=== PATIENT | female | born 1960 | race Caucasian/White ===

== ENCOUNTER 2016-12-27 08:41 | Emergency (ER) | payer BC ==
[2016-12-27 08:48] VITALS: BP 127/73
[2016-12-27] MEDS ORDERED: Amoxicillin/Clavulanate TAB* 875 MG PO ONE ×2 (09:00→09:30)
--- NOTE | 2016-12-27 09:04 | UC ---
Throat Pain/Nasal Derrick HPI - History of Current Complaint Chief Complaint: UCRespiratory Stated Complaint: SINUS CONGESTION Time Seen by Provider: 12/27/16 08:46 Hx Last Menstrual Period: age 34 yo - Allergies/Home Medications Allergies/Adverse Reactions: Allergies Allergy/AdvReac Type Severity Reaction Status Date / Time Morphine AdvReac Severe Vomiting Verified 12/27/16 08:44 environmental Allergy Eyes, Uncoded 12/27/16 08:44 runny nose PMH/Surg Hx/FS Hx/Imm Hx Endocrine History Of: Reports: Thyroid Disease - hyper Denies: Diabetes Cardiovascular History Of: Denies: Cardiac Disorders, Hypertension Respiratory History Of: Reports: Asthma, Bronchitis Denies: COPD GI/ History Of: Denies: Ulcer Cancer History Of: Denies: Breast Cancer - Surgical History Surgical History: Yes Surgery Procedure, Year, and Place: Hysterectomy age 34. gastric sleeve - Family History Known Family History: Positive: None, Cardiac Disease - mi in mid 30's, Renal Disease, Other - familial hypercholesterolemia - Social History Occupation: Employed Full-time Lives: With Family Alcohol Use: Weekly Alcohol Amount: 4 Substance Use Type: None Smoking Status (MU): Former Smoker Type: Cigarettes Amount Used/How Often: 1/2 PACK A DAY Length of Time of Smoking/Using Tobacco: 10 YEARS Have You Smoked in the Last Year: No - STARTED AGE 18 QUIT AGE 28 When Did the Patient Quit Smoking/Using Tobacco: 28 YRS AGO - Immunization History Most Recent Influenza Vaccination: 2016 Most Recent Tetanus Shot: UP TO DATE Most Recent Pneumonia Vaccination: HAS HAD Review of Systems Constitutional: Negative Skin: Negative Eyes: Negative ENT: Epistaxis, Sore Throat, Nasal Discharge, Other - sinus congestion/pain Respiratory: Cough Cardiovascular: Negative Neurological: Headache - sinus All Other Systems Reviewed And Are Negative: Yes Physical Exam Triage Information Reviewed: Yes Appearance: Well-Appearing, No Pain Distress, Well-Nourished Vital Signs: Initial Vital Signs Temp 97.2 F 12/27/16 08:45 Pulse 68 12/27/16 08:45 Resp 18 12/27/16 08:45 BP 127/73 12/27/16 08:45 Pulse Ox 100 12/27/16 08:45 Vital Signs Reviewed: Yes Eyes: Positive: Conjunctiva Clear. Negative: Discharge ENT: Positive: Hearing grossly normal, Pharyngeal erythema - mild, Nasal congestion, Nasal drainage, TMs normal. Negative: Tonsillar swelling, Tonsillar exudate, Muffled/hoarse voice Dental Exam: Normal Neck: Positive: Supple, Nontender Respiratory: Positive: Lungs clear, Normal breath sounds, No respiratory distress, No accessory muscle use Cardiovascular: Positive: RRR, No Murmur Musculoskeletal Exam: Normal Neurological: Positive: Alert, Muscle Tone Normal Psychological: Positive: Age Appropriate Behavior Skin Exam: Normal Throat Pain/Nasal Course/Dx - Differential Dx/Diagnosis Differential Diagnosis/HQI/PQRI: Pharyngitis, Sinusitis, Tonsillitis, URI Provider Diagnoses: sinusitis Discharge - Discharge Plan Condition: Stable Disposition: HOME Prescriptions: Amoxicillin/Clavulanate TAB* [Augmentin TAB 875*] 875 mg PO BID #19 tab Patient Education Materials: Sinusitis (ED) Referrals: Marcia Moon [Primary Care Provider] - If Needed Additional Instructions: TRY USING THE NETTI POT IN THE MORNINGS DISCUSSED. YOU MUST ALWAYS USE CLEAN WATER. REMEMBER, POSTURE IS AN IMPORTANT FACTOR IN SINUS DRAINAGE. MOVE YOUR NECK, BREATHE. AUGMENTIN: Augmentin is a mixture of amoxicillin and clavulanate. Amoxicillin is a member of the penicillin family. It covers the germs likely to cause ear, bronchial, and urinary infections better than plain penicillin. The addition of clavulanate allows it to cover staph infections of the skin, as well as resistant cases of ear and sinus infections. Your physician has chosen Augmentin for you because of the special nature of your situation. Augmentin is best taken with meals. Nausea after taking the medication is rare, but can occur. Diarrhea can occur, particularly in small children. Vaginal yeast infections, and oral thrush in infants are also common. Contact your physician if these problems occur. Allergy to penicillins is common. If you have had an allergic reaction to any drug of the penicillin family, you should never take any other penicillin. Notify your doctor at once if you develop hives, shortness of breath, swelling, or faintness. ANY TIME YOU TAKE AN ANTIBIOTIC, IT IS IMPORTANT TO REPLENISH THE BODY'S BALANCE OF "GOOD" BACTERIA BY EATING HIGH QUALITY CULTURED FOOD SUCH YOGURT, SAURKRAUT OR ALONDRA CHI AND/OR TAKING A PROBIOTIC SUPPLEMENT.
== END 2016-12-27 09:08 | disposition home or self-care (01) ==
LOC: UCCORT 08:41
DX: J32.9 Chronic sinusitis, unspecified (principal); J45.909 Unspecified asthma, uncomplicated; E05.90 Thyrotoxicosis, unspecified without thyrotoxic crisis or storm; Z90.710 Acquired absence of both cervix and uterus; Z98.84 Bariatric surgery status; Z88.5 Allergy status to narcotic agent; Z87.891 Personal history of nicotine dependence
CPT/HCPCS: 99212; A9270-GY; G0463

== ENCOUNTER 2017-06-19 15:08 | Emergency (ER) | payer BC ==
[2017-06-19 16:25] VITALS: BP 109/62
[2017-06-19] MEDS ORDERED: Lidocaine 1% MPF* 2 ML VIAL INJ ONE (16:37)
--- NOTE | 2017-06-19 16:41 | UC ---
Laceration HPI - HPI Summary HPI Summary: Cut left thumb cutting up squash for a barefoot rené recipe - History Of Current Complaint Chief Complaint: UCLaceration Stated Complaint: LEFT THUMB LAC Time Seen by Provider: 06/19/17 16:23 Hx Obtained From: Patient Hx Last Menstrual Period: N/A Laceration Location: Finger - left thumb Mechanism Of Injury: Sharp Trauma Onset/Duration: Sudden Onset Severity: Mild Aggravating Factors: Movement Hands: 1 - laceration Related History: Dominant Hand Right - Allergies/Home Medications Allergies/Adverse Reactions: Allergies Allergy/AdvReac Type Severity Reaction Status Date / Time Morphine AdvReac Severe Vomiting Verified 06/19/17 16:25 environmental Allergy Eyes, Uncoded 06/19/17 16:25 runny nose PMH/Surg Hx/FS Hx/Imm Hx Previously Healthy: Yes - Surgical History Surgical History: Yes Surgery Procedure, Year, and Place: Hysterectomy age 34. gastric sleeve - Family History Known Family History: Positive: None, Cardiac Disease - mi in mid 30's, Renal Disease, Other - familial hypercholesterolemia - Social History Occupation: Employed Full-time Lives: With Family Alcohol Use: Weekly Alcohol Amount: 4 Substance Use Type: None Smoking Status (MU): Former Smoker Type: Cigarettes Amount Used/How Often: 1/2 PACK A DAY Length of Time of Smoking/Using Tobacco: 10 YEARS Have You Smoked in the Last Year: No - STARTED AGE 18 QUIT AGE 28 When Did the Patient Quit Smoking/Using Tobacco: 28 YRS OLD - Immunization History Most Recent Influenza Vaccination: 2016 Most Recent Tetanus Shot: UP TO DATE Most Recent Pneumonia Vaccination: HAS HAD Review of Systems Skin: Bruising - under the cut Is Patient Immunocompromised?: No All Other Systems Reviewed And Are Negative: Yes Physical Exam Triage Information Reviewed: Yes Appearance: Well-Appearing, No Pain Distress, Well-Nourished Vital Signs: Initial Vital Signs Temp 97.8 F 06/19/17 16:18 Pulse 77 06/19/17 16:18 Resp 20 06/19/17 16:18 BP 109/62 06/19/17 16:18 Vital Signs Reviewed: Yes Eyes: Positive: Conjunctiva Clear Respiratory Exam: Normal Cardiovascular Exam: Normal Musculoskeletal Exam: Normal Neurological Exam: Normal Psychological Exam: Normal Skin: Positive: Other - left thumb laceration Laceration Repair - Laceration Repair 1 Description: Linear Laceration Size After Repair: Length (cm) - 1.8 cm Modified For Repair: No Type Injection: Local Anesthesia Used: 1.0% Lido Cleansing Completed Via Routine Prep: Yes Irrigation With Pressure Irrigation Device: Yes Closure Material: Sutures Closure Method: Single Layer Suture Of: Skin - #7 sutures Suture Type: Nylon - 4-0 Laceration Course/Dx - Differential Dx - Laceration/Wound Differental Diagnoses: Abrasion, Abscess, Avulsion, Laceration Provider Diagnoses: 1.8 cm laceration left thumb Discharge - Discharge Plan Condition: Stable Disposition: HOME Patient Education Materials: Laceration (ED), Care For Your Stitches (ED) Additional Instructions: F/U 10 days for suture removal.
== END 2017-06-19 17:11 | disposition home or self-care (01) ==
LOC: UCCORT 15:08
DX: S61.012A Laceration without foreign body of left thumb without damage to nail, initial encounter (principal); W25.XXXA Contact with sharp glass, initial encounter; Z87.891 Personal history of nicotine dependence; Z88.5 Allergy status to narcotic agent
CPT/HCPCS: 12001; 99211; G0463

== ENCOUNTER 2017-11-24 12:59 | Emergency (ER) | payer BC ==
[2017-11-24 13:16] VITALS: BP 124/72
--- NOTE | 2017-11-24 13:28 | UC ---
Respiratory Complaint HPI - HPI Summary HPI Summary: fever/ chills since this morning sever body aches, fatigue, + cough, sore throat no n/v/d/c , no abdominal pain, no urinary sx - History of Current Complaint Chief Complaint: UCGeneralIllness Stated Complaint: CHILLS,FEVER,BODY ACHES Time Seen by Provider: 11/24/17 13:14 Hx Obtained From: Patient Hx Last Menstrual Period: N/A Onset/Duration: Gradual Onset, Lasting Days - 1, Still Present Timing: Constant Severity Initially: Severe Severity Currently: Moderate Pain Intensity: 0 Character: Cough: Nonproductive Aggravating Factors: Allergens, Deep Breaths Alleviating Factors: Nothing Associated Signs And Symptoms: Positive: Fever, Chills, Wheezing, URI, Nasal Congestion. Negative: Hemoptysis, Dizziness, Calf Pain, Calf Swelling - Allergies/Home Medications Allergies/Adverse Reactions: Allergies Allergy/AdvReac Type Severity Reaction Status Date / Time morphine Allergy Vomiting Verified 11/24/17 13:17 environmental Allergy Eyes, Uncoded 11/24/17 13:17 runny nose PMH/Surg Hx/FS Hx/Imm Hx Endocrine History: Thyroid Disease - Surgical History Surgical History: Yes Surgery Procedure, Year, and Place: Hysterectomy age 34. gastric sleeve - Family History Known Family History: Positive: None, Cardiac Disease - mi in mid 30's, Renal Disease, Other - familial hypercholesterolemia - Social History Alcohol Use: Weekly Alcohol Amount: 4 Substance Use Type: None Smoking Status (MU): Former Smoker Type: Cigarettes Amount Used/How Often: 1/2 PACK A DAY Length of Time of Smoking/Using Tobacco: 10 YEARS Have You Smoked in the Last Year: No - STARTED AGE 18 QUIT AGE 28 When Did the Patient Quit Smoking/Using Tobacco: 28 YRS OLD - Immunization History Most Recent Influenza Vaccination: 2016 Most Recent Tetanus Shot: UP TO DATE Most Recent Pneumonia Vaccination: HAS HAD Review of Systems Constitutional: Fever, Chills, Fatigue Skin: Negative Eyes: Negative ENT: Sore Throat Respiratory: Cough Cardiovascular: Negative Gastrointestinal: Negative Genitourinary: Negative Musculoskeletal: Arthralgia, Myalgia Is Patient Immunocompromised?: No All Other Systems Reviewed And Are Negative: Yes Physical Exam Triage Information Reviewed: Yes Appearance: Well-Appearing, Well-Nourished Vital Signs: Initial Vital Signs Temp 97.1 F 11/24/17 13:11 Pulse 75 11/24/17 13:11 Resp 14 11/24/17 13:11 BP 124/72 11/24/17 13:11 Pulse Ox 100 11/24/17 13:11 Vital Signs Reviewed: Yes Eyes: Positive: Conjunctiva Clear ENT: Positive: Normal ENT inspection, Hearing grossly normal, Pharynx normal Neck: Positive: Supple, Nontender, No Lymphadenopathy Respiratory: Positive: Chest non-tender, Lungs clear, Normal breath sounds Cardiovascular: Positive: RRR, No Murmur, Pulses Normal Abdominal Exam: Normal Abdomen Description: Positive: Nontender, Soft. Negative: Distended, Guarding Bowel Sounds: Positive: Present Skin Exam: Normal UC Diagnostic Evaluation - Laboratory O2 Sat by Pulse Oximetry: 100 Respiratory Course/Dx - Differential Dx/Diagnosis Provider Diagnoses: viral illness Discharge - Discharge Plan Condition: Stable Disposition: HOME Patient Education Materials: Viral Syndrome (ED) Referrals: Marcia Moon [Primary Care Provider] - If Needed
== END 2017-11-24 13:47 | disposition home or self-care (01) ==
LOC: UCCORT 12:59
DX: B34.9 Viral infection, unspecified (principal)
CPT/HCPCS: 87502; 99211; G0463

== ENCOUNTER 2018-02-07 15:34 | Emergency (ER) | payer BC ==
[2018-02-07 15:58] VITALS: BP 120/77
--- NOTE | 2018-02-07 16:29 | UC ---
General HPI - HPI Summary HPI Summary: pt c/o malaise since end of last week. past 1-2 days noted some irritation over upper R breast and now has a rash that is still evolving. also notes a single pink spot on her R abdomen. + hx chicken pox. no shingles vaccination. pt also notes a sore inside her L nare. no hx mrsa. - History of Current Complaint Chief Complaint: UCRash Stated Complaint: RASH Time Seen by Provider: 02/07/18 16:12 Hx Obtained From: Patient Hx Last Menstrual Period: N/A Onset/Duration: Gradual Onset Timing: Constant Pain Intensity: 0 Aggravating: nothing Alleviating: nothing Associated Signs & Symptoms: Positive: Headache, Weakness - Allergy/Home Medications Allergies/Adverse Reactions: Allergies Allergy/AdvReac Type Severity Reaction Status Date / Time morphine Allergy Vomiting Verified 11/24/17 13:17 environmental Allergy Eyes, Uncoded 11/24/17 13:17 runny nose PMH/Surg Hx/FS Hx/Imm Hx Endocrine History: Dyslipidemia Respiratory History: Asthma - Surgical History Surgical History: Yes Surgery Procedure, Year, and Place: Hysterectomy age 34. gastric sleeve - Family History Known Family History: Positive: None, Cardiac Disease - mi in mid 30's, Renal Disease, Other - familial hypercholesterolemia - Social History Occupation: Employed Full-time Lives: With Family Alcohol Use: Daily Alcohol Amount: glass of wine Substance Use Type: None Smoking Status (MU): Former Smoker Type: Cigarettes Amount Used/How Often: 1/2 PACK A DAY Length of Time of Smoking/Using Tobacco: 10 YEARS Have You Smoked in the Last Year: No - STARTED AGE 18 QUIT AGE 28 When Did the Patient Quit Smoking/Using Tobacco: 28 YRS OLD - Immunization History Most Recent Influenza Vaccination: 2016 Most Recent Tetanus Shot: UP TO DATE Most Recent Pneumonia Vaccination: HAS HAD Vaccination Up to Date: Yes Review of Systems Constitutional: Fatigue Skin: Rash Eyes: Negative ENT: Negative Respiratory: Negative Cardiovascular: Negative Gastrointestinal: Negative Genitourinary: Negative Motor: Negative Neurovascular: Negative Musculoskeletal: Myalgia Neurological: Weakness Psychological: Negative Is Patient Immunocompromised?: No All Other Systems Reviewed And Are Negative: Yes Physical Exam Triage Information Reviewed: Yes Appearance: Well-Appearing Vital Signs: Initial Vital Signs Temp 97.8 F 02/07/18 15:54 Pulse 68 02/07/18 15:54 Resp 17 02/07/18 15:54 BP 120/77 02/07/18 15:54 Pulse Ox 100 02/07/18 15:54 Vital Signs Reviewed: Yes Eyes: Positive: Conjunctiva Clear ENT: Positive: Pharynx normal, TMs normal, Other - small sore inside L nare that is tender. Negative: Nasal congestion, Nasal drainage Neck: Positive: Supple, Nontender, No Lymphadenopathy Respiratory: Positive: Lungs clear, Normal breath sounds Cardiovascular: Positive: RRR, No Murmur Abdomen Description: Positive: Nontender, No Organomegaly, Soft Bowel Sounds: Positive: Present Musculoskeletal: Positive: ROM Intact Neurological: Positive: Alert Psychological: Positive: Age Appropriate Behavior Skin Exam: Normal Skin: Positive: rashes - 3 pink circular clusters across R upper breast with excoriation. isolated pink dot R abdomen. No axillary adenopathy. Course/Dx - Course Course Of Treatment: isolated sore in L nare, will tx bactroban ointment. rash was preceeded by general malaise and irritation to that area followed by the rash. + hx varicella. does not look c/w insect bites thus most c/w shingles. will tx with famvir. - Differential Dx - Multi-Symptom Provider Diagnoses: shingles. Sore L nare Discharge - Sign-Out/Discharge Documenting (check all that apply): Discharge/Admit/Transfer - Discharge Plan Condition: Stable Disposition: HOME Prescriptions: Famciclovir(NF) [Famvir(NF)] 500 mg PO TID #21 tab Mupirocin 2% OINT* [Bactroban 2 % Oint*] 1 applic TOPICAL BID 7 Days #1 tube Patient Education Materials: Shingles (ED) Referrals: Marcia Moon [Primary Care Provider] - 7 Days - Billing Disposition and Condition Condition: STABLE Disposition: HOME
== END 2018-02-07 16:27 | disposition home or self-care (01) ==
LOC: UCCORT 15:34
DX: B02.9 Zoster without complications (principal); J34.89 Other specified disorders of nose and nasal sinuses; E78.5 Hyperlipidemia, unspecified; J45.909 Unspecified asthma, uncomplicated; Z88.5 Allergy status to narcotic agent; Z90.710 Acquired absence of both cervix and uterus; Z98.84 Bariatric surgery status; Z87.891 Personal history of nicotine dependence
CPT/HCPCS: 99212; G0463

== ENCOUNTER 2018-06-04 08:55 | Emergency (ER) | payer BC ==
[2018-06-04 09:12] VITALS: BP 143/62
--- NOTE | 2018-06-04 09:18 | UC ---
Eye Complaint HPI - HPI Summary HPI Summary: patient has had red eyes for the past week, she thought it was allergies, the redness is not getting any better and woke up with crusty drainage and burning in the eyes - History of Current Complaint Chief Complaint: UCEye Stated Complaint: EYE COMPLAINT Time Seen by Provider: 06/04/18 09:11 Hx Obtained From: Patient Hx Last Menstrual Period: N/A ?: No Onset/Duration: Sudden Onset, Lasting Days Timing: Constant Severity Initially: Mild Severity Currently: Mild Pain Intensity: 0 Location of Injury: Conjunctiva Character: Foreign Body Sensation Aggravating Factor(s): Light Associated Signs And Symptoms: Positive: Drainage (Purulent) - Allergies/Home Medications Allergies/Adverse Reactions: Allergies Allergy/AdvReac Type Severity Reaction Status Date / Time morphine Allergy Vomiting Verified 06/04/18 09:13 environmental Allergy Eyes, Uncoded 06/04/18 09:13 runny nose PMH/Surg Hx/FS Hx/Imm Hx Previously Healthy: Yes - Surgical History Surgical History: Yes Surgery Procedure, Year, and Place: Hysterectomy age 34. gastric sleeve - Family History Known Family History: Positive: None, Cardiac Disease - mi in mid 30's, Renal Disease, Other - familial hypercholesterolemia - Social History Alcohol Use: Daily Alcohol Amount: glass of wine Substance Use Type: None Smoking Status (MU): Former Smoker Type: Cigarettes Amount Used/How Often: 1/2 PACK A DAY Length of Time of Smoking/Using Tobacco: 10 YEARS Have You Smoked in the Last Year: No - STARTED AGE 18 QUIT AGE 28 When Did the Patient Quit Smoking/Using Tobacco: 28 YRS OLD - Immunization History Most Recent Influenza Vaccination: 2016 Most Recent Tetanus Shot: UP TO DATE Most Recent Pneumonia Vaccination: HAS HAD Vaccination Up to Date: Yes Review of Systems Constitutional: Negative Skin: Negative Eyes: Drainage, Eye Redness ENT: Nasal Discharge Respiratory: Negative Cardiovascular: Negative Gastrointestinal: Negative Genitourinary: Negative Motor: Negative Neurovascular: Negative Musculoskeletal: Negative Neurological: Negative Psychological: Negative Is Patient Immunocompromised?: No All Other Systems Reviewed And Are Negative: Yes Physical Exam Triage Information Reviewed: Yes Appearance: Well-Nourished, Ill-Appearing, Pain Distress Vital Signs: Initial Vital Signs Temp 97.4 F 06/04/18 09:06 Pulse 86 06/04/18 09:06 Resp 18 06/04/18 09:06 BP 143/62 06/04/18 09:06 Pulse Ox 100 06/04/18 09:06 Vital Signs Reviewed: Yes Eyes: Positive: Conjunctiva Inflamed, Discharge ENT: Positive: Pharyngeal erythema Dental Exam: Normal Neck exam: Normal Neck: Positive: Supple, Nontender, No Lymphadenopathy Respiratory Exam: Normal Respiratory: Positive: Chest non-tender, Lungs clear, Normal breath sounds Cardiovascular Exam: Normal Cardiovascular: Positive: RRR, No Murmur, Pulses Normal Abdominal Exam: Normal Musculoskeletal Exam: Normal Neurological Exam: Normal Psychological Exam: Normal Skin Exam: Normal Eye Complaint Course/Dx - Course Course Of Treatment: hx obtained, exam performed ,meds reviewed, treated for bilateral conjunctivitis - Differential Dx/Diagnosis Differential Diagnosis/HQI/PQRI: Conjunctivitis, Keratitis, Uveitis Provider Diagnoses: bilateral conjunctivitis. sinus congestion Discharge - Sign-Out/Discharge Documenting (check all that apply): Patient Departure All imaging exams completed and their final reports reviewed: Yes - Discharge Plan Condition: Stable Disposition: HOME Prescriptions: Polymyx/Trimethoprim OPTH* [Polytrim OPHTH*] 1 drop BOTH EYES Q3H #1 btl Patient Education Materials: Conjunctivitis (ED) Referrals: Puneet DOSS,Marcia Le [Primary Care Provider] - Additional Instructions: 1. Use the drops as prescribed. 2. Warm compresses to the eyes for comfort and to relieve any drainage from the eye 3. Change your pillowcase daily, wash hands frequently. 4. FOllow up if not improving. - Billing Disposition and Condition Condition: STABLE Disposition: Home
== END 2018-06-04 09:19 | disposition home or self-care (01) ==
LOC: UCCORT 08:55
DX: H10.9 Unspecified conjunctivitis (principal); J34.89 Other specified disorders of nose and nasal sinuses; Z88.5 Allergy status to narcotic agent; Z87.891 Personal history of nicotine dependence
CPT/HCPCS: 99212; G0463

== ENCOUNTER 2018-09-28 16:43 | Emergency (ER) | payer BC ==
[2018-09-28 18:30] VITALS: BP 151/81
--- NOTE | 2018-09-28 19:02 | UC ---
"Respiratory Complaint HPI - HPI Summary HPI Summary: Head congestion, cough, pnd x 5 days +fevers and chills + wheezing decrased sleep second to cough No sob, cp. Pt with h/o of asthma and PNA - concerned for PNA + sick contact at home/work Pt did get flu vaccine. Using albuterol MDI with short term effect. Taking OTC analgesia/antipyretic. + po, decreased appetite Pt's medications reviewed this visit - History of Current Complaint Chief Complaint: UCRespiratory Stated Complaint: BODY ACHES/FEVER/COUGH Time Seen by Provider: 09/28/18 18:29 Hx Obtained From: Patient Hx Last Menstrual Period: N/A Onset/Duration: Gradual Onset Pain Intensity: 0 Character: Cough: Nonproductive Associated Signs And Symptoms: Positive: Wheezing, URI, Nasal Congestion, Hoarseness - Allergies/Home Medications Allergies/Adverse Reactions: Allergies Allergy/AdvReac Type Severity Reaction Status Date / Time morphine Allergy Vomiting Verified 09/28/18 18:21 environmental Allergy Eyes, Uncoded 09/28/18 18:21 runny nose Home Medications: Home Medications Aspirin/Acetaminophen/Caffeine [Excedrin Migraine Caplet] 2 each PO PRN [History] PMH/Surg Hx/FS Hx/Imm Hx Previously Healthy: Yes Respiratory History: Asthma, Pneumonia - Surgical History Surgical History: Yes Surgery Procedure, Year, and Place: Hysterectomy age 34. gastric sleeve - Family History Known Family History: Positive: None, Cardiac Disease - mi in mid 30's, Renal Disease, Other - familial hypercholesterolemia - Social History Occupation: Employed Full-time Lives: With Family Alcohol Use: Daily Alcohol Amount: glass of wine Substance Use Type: None Smoking Status (MU): Former Smoker Type: Cigarettes Amount Used/How Often: 1/2 PACK A DAY Length of Time of Smoking/Using Tobacco: 10 YEARS Have You Smoked in the Last Year: No - STARTED AGE 18 QUIT AGE 28 When Did the Patient Quit Smoking/Using Tobacco: 28 YRS OLD - Immunization History Most Recent Influenza Vaccination: 2016 Most Recent Tetanus Shot: UP TO DATE Most Recent Pneumonia Vaccination: HAS HAD Vaccination Up to Date: Yes Review of Systems All Other Systems Reviewed And Are Negative: Yes Constitutional: Positive: Fever, Chills, Fatigue Skin: Positive: Negative ENT: Positive: Nasal Discharge, Sinus Congestion Respiratory: Positive: Cough Physical Exam - Summary Physical Exam Summary: Vital Signs Reviewed: Yes A+Ox3, coarse cough, tired appearing Eyes: Conjunctiva Clear, KARYN. EOM intact and full ENT: Hearing grossly normal TM x 2 clear, nasal congestion, + PND, mmoist, uvula midline, no exudate, no erythema Neck: Positive: Supple Respiratory: Positive: coarse cough + scattered exp wheeze, no rhonci, + BS Throughout no accessory muscle use Cardiovascular: RRR nl s1, s2 no m/r CBT <2 sec abd soft + BS nt/nd no guarding, no distension Musculoskeletal Exam: JOEL x 4 without difficulty Strength Intact, ROM Intact Neurological: Positive: Alert, + sensation throughout Psychological: Positive: Normal Response To Family Skin: Positive: no rash, no ecchymosis Triage Information Reviewed: Yes Vital Signs: Initial Vital Signs Temp 98 F 09/28/18 18:24 Pulse 87 09/28/18 18:24 Resp 16 09/28/18 18:24 BP 151/81 09/28/18 18:24 Pulse Ox 100 09/28/18 18:24 Diagnostic Evaluation - Laboratory O2 Sat by Pulse Oximetry: 100 Re-Evaluation - Re-Evaluation First Eval Comment: + early RLL on CXR my prelim read. flu neg. Will Rx Doxy, MDI, prednisone. Robitussing/codeine - istop checked, consistent. Pt reports yeast infections with abx - will rx diflucan. hydrate. secretion precaution. return precaution Respiratory Course/Dx - Course Course Of Treatment: Tootie Shields | Reference #: [id number] is stop. Pt presents with body aches, chills, coarse cough, sinus congestion x 5 days. Pt with poor sleep second to coughing - little relief with OTC meds. On exam, VSS. Pt with end exp wheeze. Will check CXR. flu. reassess - Differential Dx/Diagnosis Provider Diagnosis: PNA (pneumonia) Discharge - Sign-Out/Discharge Documenting (check all that apply): Patient Departure All imaging exams completed and their final reports reviewed: No - Discharge Plan Condition: Stable Disposition: HOME Prescriptions: Albuterol HFA INHALER* [Ventolin HFA Inhaler*] 2 puff INH Q4H PRN #1 mdi PRN Reason: wheeze DOXYcycline CAP(*) [DOXYcycline 100MG CAP(*)] 100 mg PO BID #20 cap Fluconazole [Diflucan 150 MG (NF)] 150 mg PO ONCE PRN #1 tab PRN Reason: vaginal yeast infection guaiFENesin/CODIEN 100MG-10MG* [Robitussin AC 100Mg-10Mg*] 10 ml PO Q6HR PRN # 150 ml MDD 40 PRN Reason: Cough predniSONE TAB* [Deltasone TAB*] 50 mg PO DAILY #5 tab Patient Education Materials: Pneumonia (ED) Referrals: Puneet DOSS,Marcia Le [Primary Care Provider] - Additional Instructions: - Take antibiotics exactly as prescribed until gone - Okay to alternate ibuprofen (Advil, Motrin) 600mg and Tylenol product ( Tylenol or [place]) every 3 hours as needed for pain or fever. Take with food. -Use your albuterol puffer with a spacer or inhaler every 4 hours for the next 2 days - then as needed -Stay well hydrated - avoid excess caffeine and all alcohol - Take prednisone as prescribed - Okay to take over the counter cough medications OR Tobitussin and codeine a prescribed. This medications contains a narcotic - do not drive, operate machinery or drink alcohol while taking codeine - eat regular, healthy meals - humidify the air in the room where you sleep - These infections are spread by oral secretions. Do not share eating or drinking utensils. Frequent hand washing is important. Clean items that may get your secretions on them such as cell phones, ipads, computer mouse, television remotes. Once you have been on antibiotics for 2 days, change your pillowcase and your toothbrush -Contact your doctor to arrange a follow-up appointment this week. Call your doctor, return here or go to the emergency department with any questions or concerns Your imaging study was reviewed by the provider who treated you today. Your imaging study will be reviewed by a radiologist tomorrow. If there is a finding that is different than that discussed with your tonight, you will receive a call from a care steam fitter helper - Billing Disposition and Condition Condition: STABLE Disposition: Home"
--- NOTE | 2018-09-29 08:14 | UC ---
- Progress Note Progress Note: Patient Name: INOCENCIA MONIQUE Medical Record#: [id number] Ordering Physician: Tootie Osborn MD Acct.#: [id number] : 1960 Age: 58 Sex: F Location: URGENT [facility] Exam Date: 09/28/181900 ADM Status: [facility] ER Order Information: CHEST PA & LAT 2 VWS Accession Number: [id number] CPT: 59283 HISTORY: cough, fever, wheeze, asthma COMPARISONS: September 23, 2016 VIEWS: 4: Frontal dual-energy and lateral views of the chest. FINDINGS: CARDIOMEDIASTINAL SILHOUETTE: The cardiomediastinal silhouette is normal. JUDE: The jude are normal. PLEURA: There is eventration of the right hemidiaphragm. LUNG PARENCHYMA: There is a 0.7 cm nodule of the right midlung on the frontal projection is not clearly seen on the previous examination. ABDOMEN: The upper abdomen is clear. There is no subphrenic gas. BONES AND SOFT TISSUES: No bone or soft tissue abnormalities are noted. OTHER: None. IMPRESSION: 0.7 CM NODULE OF THE RIGHT MIDLUNG, NOT CLEARLY SEEN ON THE PREVIOUS EXAMINATION. RECOMMEND FURTHER EVALUATION WITH CONTRAST-ENHANCED CT OF THE CHEST. PRELIMINARY FINDINGS WERE DISCUSSED WITH DR. OSBORN AT APPROXIMATELY 7:47 AM ON SEPTEMBER 29, 2018 . R3 Preliminary Imaging Read R3 <Electronically signed by Sacha Thompson MD in OV> 09/29/18746 Dictated By: Sacha Thompson MD Dictated Date/Time: 09/29/18746 Transcribed Date/Time: 09/29/18743 Copy to: CC:Tooite Osborn MD; Marcia DOSS Imaging - [facility] Imaging - [place] [facility] Imaging - [facility] This report is only to be considered final once signed by the Provider(s) as displayed in the "<Electronically Signed by >" field (s). Absence of a signature indicates the report is in a draft status and still needs to be finalized. In the event this document was created by someone other than the signing Provider, the individual initiating the document will be listed in the "Entered by:" or "Dictated by:" paz. 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 l= Course/Dx - Diagnoses Provider Diagnoses: PNA (pneumonia) Discharge - Sign-Out/Discharge Documenting (check all that apply): Post-Discharge Follow Up All imaging exams completed and their final reports reviewed: Yes - Discharge Plan Condition: Stable Disposition: HOME Prescriptions: Albuterol HFA INHALER* [Ventolin HFA Inhaler*] 2 puff INH Q4H PRN #1 mdi PRN Reason: wheeze DOXYcycline CAP(*) [DOXYcycline 100MG CAP(*)] 100 mg PO BID #20 cap Fluconazole [Diflucan 150 MG (NF)] 150 mg PO ONCE PRN #1 tab PRN Reason: vaginal yeast infection guaiFENesin/CODIEN 100MG-10MG* [Robitussin AC 100Mg-10Mg*] 10 ml PO Q6HR PRN # 150 ml MDD 40 PRN Reason: Cough predniSONE TAB* [Deltasone TAB*] 50 mg PO DAILY #5 tab Patient Education Materials: Pneumonia (ED) Referrals: Puneet DOSS,Marcia Le [Primary Care Provider] - Additional Instructions: - Take antibiotics exactly as prescribed until gone - Okay to alternate ibuprofen (Advil, Motrin) 600mg and Tylenol product ( Tylenol or [place]) every 3 hours as needed for pain or fever. Take with food. -Use your albuterol puffer with a spacer or inhaler every 4 hours for the next 2 days - then as needed -Stay well hydrated - avoid excess caffeine and all alcohol - Take prednisone as prescribed - Okay to take over the counter cough medications OR Tobitussin and codeine a prescribed. This medications contains a narcotic - do not drive, operate machinery or drink alcohol while taking codeine - eat regular, healthy meals - humidify the air in the room where you sleep - These infections are spread by oral secretions. Do not share eating or drinking utensils. Frequent hand washing is important. Clean items that may get your secretions on them such as cell phones, ipads, computer mouse, television remotes. Once you have been on antibiotics for 2 days, change your pillowcase and your toothbrush -Contact your doctor to arrange a follow-up appointment this week. Call your doctor, return here or go to the emergency department with any questions or concerns Your imaging study was reviewed by the provider who treated you today. Your imaging study will be reviewed by a radiologist tomorrow. If there is a finding that is different than that discussed with your tonight, you will receive a call from a care steam shovel operating engineer - Billing Disposition and Condition Condition: STABLE Disposition: Home
--- NOTE | 2018-10-02 16:05 | UC ---
Re-Evaluation - Re-Evaluation First Eval Comment: + early RLL on CXR my prelim read. flu neg. Will Rx Doxy, MDI, prednisone. Robitussing/codeine - istop checked, consistent. Pt reports yeast infections with abx - will rx diflucan. hydrate. secretion precaution. return precaution Course/Dx - Diagnoses Provider Diagnoses: PNA (pneumonia) Discharge - Sign-Out/Discharge Documenting (check all that apply): Post-Discharge Follow Up All imaging exams completed and their final reports reviewed: Yes - Discharge Plan Condition: Stable Disposition: HOME Prescriptions: Albuterol HFA INHALER* [Ventolin HFA Inhaler*] 2 puff INH Q4H PRN #1 mdi PRN Reason: wheeze DOXYcycline CAP(*) [DOXYcycline 100MG CAP(*)] 100 mg PO BID #20 cap Fluconazole [Diflucan 150 MG (NF)] 150 mg PO ONCE PRN #1 tab PRN Reason: vaginal yeast infection guaiFENesin/CODIEN 100MG-10MG* [Robitussin AC 100Mg-10Mg*] 10 ml PO Q6HR PRN # 150 ml MDD 40 PRN Reason: Cough predniSONE TAB* [Deltasone TAB*] 50 mg PO DAILY #5 tab Patient Education Materials: Pneumonia (ED) Referrals: Puneet DOSS,Marcia Le [Primary Care Provider] - Additional Instructions: - Take antibiotics exactly as prescribed until gone - Okay to alternate ibuprofen (Advil, Motrin) 600mg and Tylenol product ( Tylenol or [place]) every 3 hours as needed for pain or fever. Take with food. -Use your albuterol puffer with a spacer or inhaler every 4 hours for the next 2 days - then as needed -Stay well hydrated - avoid excess caffeine and all alcohol - Take prednisone as prescribed - Okay to take over the counter cough medications OR Tobitussin and codeine a prescribed. This medications contains a narcotic - do not drive, operate machinery or drink alcohol while taking codeine - eat regular, healthy meals - humidify the air in the room where you sleep - These infections are spread by oral secretions. Do not share eating or drinking utensils. Frequent hand washing is important. Clean items that may get your secretions on them such as cell phones, ipads, computer mouse, television remotes. Once you have been on antibiotics for 2 days, change your pillowcase and your toothbrush -Contact your doctor to arrange a follow-up appointment this week. Call your doctor, return here or go to the emergency department with any questions or concerns Your imaging study was reviewed by the provider who treated you today. Your imaging study will be reviewed by a radiologist tomorrow. If there is a finding that is different than that discussed with your tonight, you will receive a call from a care steam crane operator - Billing Disposition and Condition Condition: STABLE Disposition: Home
== END 2018-09-28 19:57 | disposition home or self-care (01) ==
LOC: UCCORT 16:43
DX: J18.9 Pneumonia, unspecified organism (principal); R91.1 Solitary pulmonary nodule; Z88.5 Allergy status to narcotic agent; Z87.891 Personal history of nicotine dependence
CPT/HCPCS: 71046; 99212; G0463

== ENCOUNTER 2019-12-10 07:58 | Emergency (ER) | payer BC, OTHER ==
--- OUTSIDE RECORDS SUMMARY | 2019-12-10 08:12 | XMS REPORT | Continuity of Care Document ---
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 Problems Active Problems Provider Date Difficulty breathing Ernestina Perea MD Onset: 07/08/2015 Obesity Ernestina Perea MD Onset: 07/08/2015 Obstructive sleep apnea syndrome Jamaica Smith DNP, RN, AGRICULTURAL ENGINEERING TECHNICIAN- Onset: Electrocardiogram abnormal Jesse Tiwari M.D., [facility], Onset: 09/30/2015 FASNC Social History Type Date Description Comments Sex Unknown Tobacco Use Start: Unknown End: Former Cigarette Smoker Unknown ETOH Use consumes 1-2 glasses of wine per week Tobacco Use Start: Unknown End: Patient is a former Unknown smoker Recreational Drug Use Denies Drug Use Tobacco Use Start: Unknown Quit when 28 years old Smoking Status Reviewed: 11/06/19 Quit when 28 years old Exercise Type/Frequency Exercises regularly 3 times per week Allergies, Adverse Reactions, Alerts Active Allergies Reaction Severity Comments Date Morphine vomiting per patient 03/27/2013 Medications Active Medications SIG Qnty Indications Ordering Date Provider Premarin 1 po qd 90tabs Unknown 0.3mg Tablets Lipitor 1 po hs 90tabs Unknown 80mg Tablets Albuterol Sulfate 1 unit dose via Unknown nebulizer every 4-6 (2.5mg/3ML) 0.083% hours as needed Nebulizer Imitrex tablet at onset of Unknown 50mg Tablets migraine if headache persists after two hours repeat dose Multivitamin Adult 1 by mouth every Unknown day Tablets Ventolin HFA 1 to 2 inhalations Unknown every 4 hours as 108(90Base) mcg/Act needed Aerosol Venlafaxine HCL ER 1 by mouth every Unknown day 37.5mg Caps ER 24HR Medications Administered in Office Medication SIG Qnty Indications Ordering Provider Date Technetium TC 99M TetrofNeo barnhart M.D. 10/02/2015 Per Unit Dose Up To 40 Millicuries Injection Immunizations Description No Information Available Vital Signs Date Vital Result Comment 11/06/2019 10:04am Height 64.25 inches 5'4.25" Weight 214.38 lb Heart Rate 78 /min BP Systolic Sitting 122 mmHg BP Diastolic Sitting 76 mmHg Respiratory Rate 18 /min Pain Level 3 O2 % BldC Oximetry 98 % BMI (Body Mass Index) 36.5 kg/m2 Results Description No Information Available Procedures Date Code Description Status 11/06/2019 07152 Inject/Drain Joint/Bursa Major W/O US Completed 08/02/2016 02066182 Mammogram Completed Medical Devices Description No Information Available Encounters Type Date Location Provider Dx Diagnosis Office Visit 09/11/2019 1:00p [facility] Bubba Chao NP R51 Headache H53.143 Visual discomfort, bilateral M54.2 Cervicalgia M54.81 Occipital neuralgia Assessments Date Code Description Provider 11/06/2019 M25.462 Effusion, left knee Ethan Musa MD 11/06/2019 M22.2x2 Patellofemoral disorders, left knee Ethan Musa MD 09/11/2019 R51 Headache Bubba Chao NP 09/11/2019 H53.143 Visual discomfort, bilateral Bubba Chao NP 09/11/2019 M54.2 Cervicalgia Bubba Chao NP 09/11/2019 M54.81 Occipital neuralgia Bubba Chao NP Plan of Treatment 11/06/2019 - Ethan Musa, MDM25.462 Effusion, left kneeComments:ice/elevate , home exercises sheetsFollow up:Follow up: As augzonU88.2x2 Patellofemoral disorders, left knee Functional Status Description No Information Available Mental Status Description No Information Available Referrals Description No Information Available
--- OUTSIDE RECORDS SUMMARY | 2019-12-10 08:12 | XMS REPORT | Continuity of Care Document ---
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 [phone] Problems Active Problems Provider Date Difficulty breathing Ernestina Perea MD Onset: 07/08/2015 Obesity Ernestina Perea MD Onset: 07/08/2015 Obstructive sleep apnea syndrome Jamaica Smith DNP, RN, PHARMACIST- Onset: Electrocardiogram abnormal Jesse Tiwari M.D., [facility], Onset: 09/30/2015 FASNC Social History Type Date Description Comments Sex Unknown Tobacco Use Start: Unknown End: Former Cigarette Smoker Unknown ETOH Use consumes 1-2 glasses of wine per week Tobacco Use Start: Unknown End: Patient is a former Unknown smoker Recreational Drug Use Denies Drug Use Tobacco Use Start: Unknown Quit when 28 years old Smoking Status Reviewed: 12/05/19 Quit when 28 years old Exercise Type/Frequency [...] Medication SIG Qnty Indications Ordering Provider Date Celestone 3 mg and 3mg Ethan Musa MD 11/06/2019 Injection Technetium TC 99M Tetrofosmin, Neo Wells M.D. 10/02/2015 Per Unit Dose Up To 40 Millicuries Injection Immunizations Description No Information Available Vital Signs Date Vital Result Comment 12/05/2019 11:00am Height 64.25 inches 5'4.25" Heart Rate 82 /min BP Systolic Sitting 116 mmHg BP Diastolic Sitting 76 mmHg Respiratory Rate 16 /min Pain Level 8 O2 % BldC Oximetry 99 % 11/06/2019 10:04am Height 64.25 inches 5'4.25" Weight 214.38 lb Heart Rate 78 /min BP Systolic Sitting 122 mmHg BP Diastolic Sitting 76 mmHg Respiratory Rate 18 /min Pain Level 3 O2 % BldC Oximetry 98 % BMI (Body Mass Index) 36.5 kg/m2 Results Description No Information Available Procedures Date Code Description Status 11/06/2019 33785 Xray Knee 3 Views Completed 11/06/2019 92777 Inject/Drain Joint/Bursa Major W/O US Completed 08/02/2016 [id number] Mammogram Completed Medical Devices Description No Information Available Encounters Type Date Location Provider Dx Diagnosis Office Visit 12/05/2019 [facility] Ethan Musa, M79.662 Pain in left 11:00a at [facility] lower leg Office Visit 11/06/2019 [facility] Ethan Musa, M25.462 Effusion, left 10:15a at [facility] knee M22.2x2 Patellofemoral disorders, left knee M25.562 Pain in left knee Office Visit 09/11/2019 1:00p [facility] Bubba Chao NP R51 Headache H53.143 Visual discomfort, bilateral M54.2 Cervicalgia M54.81 Occipital neuralgia Assessments Date Code Description Provider 12/05/2019 M79.662 Pain in left lower leg Ethan Musa MD 11/06/2019 M25.462 Effusion, left knee Ethan Musa MD 11/06/2019 M22.2x2 Patellofemoral disorders, left knee Ethan Musa MD 11/06/2019 M25.562 Pain in left knee Ethan Musa MD 09/11/2019 R51 Headache Bubba Chao, ELISABET 09/11/2019 H53.143 Visual discomfort, bilateral Bubba Chao, ELISABET 09/11/2019 M54.2 Cervicalgia Bubba Chao, ELISABET 09/11/2019 M54.81 Occipital neuralgia Bubba Chao NP Plan of Treatment 12/05/2019 - Ethan Musa, MDM79.662 Pain in left lower legComments:home exercises sheetsFollow up:Follow up: As needed Functional Status Description No Information Available Mental Status Description No Information Available Referrals Description No Information Available
--- OUTSIDE RECORDS SUMMARY | 2019-12-10 08:12 | XMS REPORT | Continuity of Care Document ---
:1960 External Reference #:[id number] Author Name Lalitha Barbosa O.D. (transmitted by agent of provider Griselda Dumont) Address [address] [place] [address] Care Team Providers Name Role Phone Denny Wolfe M.D. - Internal Medicine Care Team Information [employer] [phone] Problems Active Problems Provider Date Hypercholesterolemia Onset: Combined form of senile cataract Osman Mejia M.D. Onset: 03/05/2019 Vitreous degeneration Osman Mejia M.D. Onset: 03/05/2019 Presence of intraocular lens Osman Mejia M.D. Onset: 04/19/2019 Meibomian gland dysfunction left upper Lalitha Barbosa O.D. Onset: 2019 eyelid Meibomian gland dysfunction right upper Lalitha Barbosa O.D. Onset: 11/29 eyelid Tear film insufficiency Lalitha Barbosa O.D. Onset: 11/30/2019 Social History Type Date Description Comments Sex Unknown ETOH Use Occasionally consumes alcohol Tobacco Use Start: Unknown Patient has never smoked Smoking Status Reviewed: 11/30/19 Patient has never smoked Allergies, Adverse Reactions, Alerts Active Allergies Reaction Severity Comments Date Morphine 03/05/2019 Medications Active Medications SIG Qnty Indications Ordering Provider Date Artificial Tears Osman Mejia, 04/18/2019 1-0.3% M.D. Solution Atorvastatin Calcium Unknown 80mg Tablets Premarin Unknown 0.3mg Tablets Aspirin [address] Melatonin Maximum Unknown Strength 5mg Tablets Claritin 1 per day as Unknown 10mg Capsules needed Immunizations Description No Information Available Vital Signs Description No Information Available Results Description No Information Available Procedures Date Code Description Status 11/30/2019 38672 Est Patient Comprehensive Exam Completed Medical Devices Description No Information Available Encounters Description No Information Available Assessments Date Code Description Provider 11/30/2019 H04.123 Dry eye syndrome of bilateral lacrimal Lalitha Barbosa O.D. glands 11/30/2019 H02.881 Meibomian gland dysfunction right upper Lalitha Barbosa O.D. eyelid 11/30/2019 H02.884 Meibomian gland dysfunction left upper Lalitha Barbosa O.D. eyelid 11/30/2019 Z96.1 Presence of intraocular lens Lalitha Barbosa O.D. 06/27/2019 H43.813 Vitreous degeneration, bilateral Lalitha Barbosa O.D. 06/27/2019 Z96.1 Presence of intraocular lens Lalitha Barbosa O.D. Plan of Treatment 11/30/2019 - Lalitha Barbosa O.D.H04.123 Dry eye syndrome of bilateral lacrimal glandsComments:Smoking can increase the risk of developing or worsening any eye related disease, as well as affect your overall health. If you are a smoker, we strongly recommend that you quit.If you are not a smoker, we strongly recommend that you do not start. USE ARTIFICIAL TEARS VERY OFTEN THROUGHOUT THE DAYTAKE 1000MG OF OMEGA 3s SUCH COD LIVER OIL OR FLAX SEED OILUSE HOT COMPRESSES EVERY NIGHT AND MASSAGE YOUR EYELIDSMAKE SURE TO REMOVE ALL OF YOUR MAKE UP EVERY NIGHTFollow up:1 Year Follow Up You can expect to have your eyes dilated at your next visit. If Dr. Barbosa orders any additional testing, it may require extra time. We recommend that you bring sunglasses, as dilation drops often make you light sensitive until they wear off. We always recommend you bring someone to drive you home if you are uncomfortable driving with your eyes dilated. If you have any questions before your next visit, feel free to call our office at .H02.881 Meibomian gland dysfunction right upper [id number] Meibomian gland dysfunction left upper [id number] Presence of intraocular lens Functional Status Description No Information Available Mental Status Description No Information Available Referrals Description No Information Available
--- NOTE | 2019-12-10 08:34 | UC ---
[facility] HPI HPI Summary: Pt presents with c/o dry cough, fatigue, and has hx of asthma that is allergen induce and denies fever. Telehealth PMH Previously Healthy: Yes Endocrine/Hematology History: Reports: Hx Thyroid Disease - HYPERTHYROID- IN THE PAST TREATED WITH METHIMAZOLE Denies: Hx Diabetes Cardiovascular History: Denies: Hx Hypertension, Hx Pacemaker/ICD, Other Cardiovascular Problems/ Disorders Respiratory History: Reports: Hx Asthma - HX OF- NO INHALERS AT THIS TIME, Hx Sleep Apnea - in past, Other Respiratory Problems/Disorders - PNEUMONIA -08/2018 -09/2018 Denies: Hx Chronic Obstructive Pulmonary Disease (COPD) GI History: Reports: Hx Gastroesophageal Reflux Disease - ON MEDICATION FOR, Hx Hiatal Hernia Denies: Hx Ulcer, Other GI Disorders History: Denies: Hx Dialysis, Hx Renal Disease, Other Problems/Disorders Musculoskeletal History: Denies: Other Musculoskeletal History Sensory History: Reports: Hx Cataracts - BILATERAL, Hx Contacts or Glasses - INSTRUCTS GIVEN Denies: Hx Hearing Aid Opthamlomology History: Reports: Hx Cataracts - BILATERAL, Hx Contacts or Glasses - INSTRUCTS GIVEN Neurological History: Reports: Hx Headaches Denies: Other Neuro Impairments/Disorders Psychiatric History: Denies: Hx Anxiety, Hx Attention Deficit Hyperactivity Disorder, Hx Autism, Hx Eating Disorder, Hx Oppositional [place] Disorder, Hx Depression, Hx Panic Disorder, Hx Post Traumatic Stress Disorder, Hx Inpatient Treatment, Hx Community Mental Health Tx, Hx Schizophrenia, Hx Bipolar Disorder, Hx Suicide Attempt, Hx of Violent Episodes Against Others, Hx Substance Abuse, Other Psychiatric Issues/Disorders - Cancer History Hx Chemotherapy: No Hx Radiation Therapy: No - Surgical History Surgery Procedure, Year, and Place: hysterectomy, breast biopsy, gastric sleeve. LEFT ARM SQUAMOUS CELL REMOVAL AND FACE Hx Anesthesia Reactions: No Infectious Disease History: No - Family History Known Family History: Positive: None, Cardiac Disease - mi in mid 30's, Renal Disease, Other - familial hypercholesterolemia - Social History Alcohol Use: Weekly Alcohol Amount: 4-5 GLASSES OF WINE WEEKLY Substance Use Type: Reports: None Smoking Status (MU): Former Smoker Type: Cigarettes Amount Used/How Often: 1/2 PACK A DAY X 8 YEARS Length of Time of Smoking/Using Tobacco: 10 YEARS Have You Smoked in the Last Year: No Telehealth ROS All Other Systems Reviewed And Are Negative: Yes Positive: Fatigue Eyes: Negative ENT: Negative Cardiovascular: Negative Positive: Cough - dry, Gastrointestinal: Negative Genitourinary: Negative Musculoskeletal: Negative Skin: Negative Neurological/Mental Status: Negative Psychological: Normal Telehealth PE Appearance: Positive: Well-Appearing Eyes: Positive: Normal ENT: Positive: Hearing grossly normal Neck: Positive: Supple - pt denies any tender "lumps or bumps" Respiratory/Lung Sounds: Positive: Cough Musculoskeletal: Positive: Normal Tone Neurological: Positive: Alert, Oriented to Person Place, Time Psychiatric: Positive: Normal [facility] Course/Dx Assessment/Plan: Pt was seen via telehealth. VS were not taken. Pt instructed to seek care at ER if symptoms worsen. Pt was in no observable acute distress during telehealth visit. Provider Diagnoses: Cough in adult, Environmental allergies Telehealth Disposition Provider Recommendation for Treatment: Urgent Care Telehealth Visit: Patient Consented Verbally to Telehealth Visit Telehealth Patient Statement: The patient should understand that they are communicating with their provider via a secure communication platform and that all the same privacy and confidentiality rules apply. They will also be responsible for copayments or coinsurances that apply to any Telehealth visit. Patient Identifiers: 2 Patient Identifiers Verified for Telehealth Visit Telehealth Visit Start Time: 08:50 Telehealth Visit End Time: 09:05 Telehealth Provider Attestation: The above services were appropriate to provide in a Telehealth setting.
--- NOTE | 2019-12-12 08:23 | UC ---
- Progress Note Progress Note: please call the pt. COVID19 undetected cont. with symptomatic treatment , may stop self Quarantine cont. with social distancing follow up as needed Course/Dx - Diagnoses Provider Diagnoses: Cough in adult, Environmental allergies Discharge ED - Sign-Out/Discharge Documenting (check all that apply): Patient Departure All imaging exams completed and their final reports reviewed: No Studies - Discharge Plan Condition: Stable Disposition: HOME Prescriptions: Albuterol HFA INHALER* [Ventolin HFA Inhaler*] 1 - 2 puff INH Q4H PRN #1 mdi PRN Reason: Sob/Wheezing Benzonatate CAP* [Tessalon 100 MG CAP*] 100 mg PO Q8H PRN #30 cap PRN Reason: Cough Loratadine 10 mg PO DAILY #30 tablet predniSONE 20 mg TAB [Deltasone 20 MG TAB*] 60 mg PO DAILY #19 tab Patient Education Materials: Acute Cough (ED) Forms: COVID-19 Tested & Isolation Referrals: Puneet DOSS,Marcia Le [Primary Care Provider] - If Needed - Billing Disposition and Condition Condition: STABLE Disposition: Home
== END 2019-12-10 09:46 | disposition home or self-care (01) ==
LOC: UCCORT 07:58
DX: R05 Cough (principal); J45.909 Unspecified asthma, uncomplicated; R53.83 Other fatigue; Z20.828 Contact with and (suspected) exposure to other viral communicable diseases; K21.9 Gastro-esophageal reflux disease without esophagitis; Z87.891 Personal history of nicotine dependence
CPT/HCPCS: 87635; 99212; G0463

== ENCOUNTER 2021-01-13 13:06 | Inpatient (IN) ==
[~2021-01-13 13:06] MED LIST: Buffered Lidocaine 1% SYRIN 1 ml INTRADERM ONE; Famotidine IV 10 MG/ML 2 ml VIAL (20 mg) IV ONE; Famotidine IV 10 MG/ML 2 ml VIAL (20 mg) ONE; Lactated Ringers 1000 ml BAG 1,000 ML IV SCH; Lidocaine 1% MPF 5 ML VIAL ONE; ROPIVACAINE 5 MG/ML 30 ML BTL (0.5%) ONE; ceFAZolin 2 GM PREMIX 2 GM/50 ML BAG ONE
[2021-01-13] MEDS ORDERED: Midazolam 2 mg/2 ml VIAL 1 mg/ml 2 ml VIAL (2 mg) ONE ×2 (15:06→17:34)
[2021-01-13] MEDS ORDERED: Ropivacaine 5 MG/ML 20 ML VIAL 0.5% (100 MG) ONE (15:26)
[2021-01-13] MEDS ORDERED: fentaNYL 100 mcg/2 ml 50 MCG/ML VIAL ONE (16:46)
[2021-01-13] MEDS ORDERED: HYDROmorphone 1 MG/1 ML SYRINGE IV PRN (16:49)
[2021-01-13] MEDS ORDERED: Naloxone 0.4 mg VIAL 0.4 mg/ml 1 ml VIAL IV PRN (16:49)
[2021-01-13] MEDS ORDERED: Acetaminophen IV 1 GM/100ML 1,000 MG/100 ML VIAL IVPB ONE (16:49)
[2021-01-13] MEDS ORDERED: DiMENhydriNATE IV 50 mg/ml 1 ml VIAL IV PUSH PRN (16:49)
[2021-01-13] MEDS ORDERED: Acetaminophen IV 1 GM/100ML 100 ML ONE (19:29)
[2021-01-13] MEDS ORDERED: Ondansetron 4 mg VIAL 2 MG/ML 2 ml VIAL IV PRN (19:52)
[2021-01-13] MEDS ORDERED: diPHENhydraMINE IV 50 MG/ML 1 ml VIAL (BENADRYL) IV PRN (19:52)
[2021-01-13] MEDS ORDERED: diPHENhydraMINE 25 mg TAB PO PRN (19:52)
[2021-01-13] MEDS ORDERED: Lactulose 30 ml UDC PO PRN (19:52)
[2021-01-13] MEDS ORDERED: Morphine 2 MG/ML SYRINGE IV PRN (19:52)
[2021-01-13] MEDS ORDERED: Magnesium Hydroxide LIQ 30 ML UDC PO PRN (19:52)
[2021-01-13] MEDS ORDERED: Ondansetron ODT 4 mg TAB 4 MG TAB PO PRN (19:52)
[2021-01-13] MEDS ORDERED: Lactated Ringers 1000 ml BAG 1,000 ML IV SCH (20:00)
[2021-01-13] MEDS: Magnesium Hydroxide LIQ 30 ML UDC PO SCH (22:11)
[2021-01-13] MEDS ORDERED: Conjugated Estrogens 0.3mg TAB PO SCH (22:30)
[2021-01-14] MEDS: ceFAZolin 1 GM ADVAN 1 GM in NS 0.9% 50 ML 50 ML IVPB SCH ×2 (01:45→09:55)
[2021-01-14 05:38] LABS: Hematocrit 37 % (35-47); Hemoglobin 12.3 g/dL (12.0-16.0); Mean Platelet Volume 7.5 fL (7.4-10.4); Platelet Count 206 10^3/uL (150-450)
[2021-01-14 05:48] LABS: Calcium 8.6 mg/dL (8.6-10.3); EGFR African American 77.3 (>60); EGFR Non-African American 63.9 (>60); Potassium 4.5 mmol/L (3.5-5.0)
[2021-01-14] MEDS: Magnesium Hydroxide LIQ 30 ML UDC PO SCH (08:50)
[2021-01-14] MEDS ORDERED: Vitamin THERAPEUTIC TAB PO SCH (09:00)
[2021-01-14 11:30] VITALS: BP 125/65
== END 2021-01-14 12:30 | disposition home or self-care (01) | DRG 302 ==
LOC: AA 13:06 → SSU 21:30
PROVIDERS: ADMIT Orthopaedic Surgery Adult Reconstructive Orthopaedic Surgery; ATTEND Orthopaedic Surgery Adult Reconstructive Orthopaedic Surgery